=== PATIENT | male | born 1995 | race Two or more races ===

== ENCOUNTER 2021-10-08 12:48 | Outpatient (CLI) | payer OTHER | END 2021-10-08 12:57 | disposition home or self-care (01) | LOC: RAD 12:48 | PROVIDERS: ATTEND Physical Medicine & Rehabilitation | DX: M25.561 Pain in right knee (principal) ==

== ENCOUNTER 2022-03-24 10:59 | Outpatient (CLI) | payer OTHER | END 2022-03-24 11:09 | disposition home or self-care (01) | LOC: RAD 10:59 | PROVIDERS: ATTEND Radiology Diagnostic Radiology | DX: M54.50 Low back pain, unspecified (principal); M54.16 Radiculopathy, lumbar region ==

== ENCOUNTER 2024-11-08 13:12 | Outpatient (CLI) | payer OTHER | END 2024-11-08 13:18 | disposition home or self-care (01) | LOC: RAD 13:12 | PROVIDERS: ATTEND Physical Medicine & Rehabilitation | DX: M54.59 Other low back pain (principal) ==

== ENCOUNTER 2024-12-18 14:23 | Outpatient (CLI) | payer OTHER | END 2024-12-18 14:33 | disposition home or self-care (01) | LOC: SONOGRAMA 14:23 | DX: M25.561 Pain in right knee (principal); M76.30 Iliotibial band syndrome, unspecified leg ==